=== PATIENT | male | born 1995 ===

== ENCOUNTER → 2018-01-16 | Outpatient (CLI) | payer OTHER ==
[2018-01-18 06:12] LABS: HBSAG SCREEN Negative (Negative); HEP B CORE AB, TOT Negative (Negative); HEP C VIRUS AB <0.1 (0.0-0.9)
== END | disposition home or self-care (01) ==
LOC: LAB UCHC 14:42 → LAB SHORT 14:42
PROVIDERS: Nurse Practitioner Adult Health
DX: F19.10 Other psychoactive substance abuse, uncomplicated (principal)
CPT/HCPCS: 86317; 86704; 86708; 86803; 87340